=== PATIENT | female | born 1975 | race Caucasian/White ===

== ENCOUNTER 2016-11-22 05:41 | Day surgery (SDC) | payer OTHER ==
[~2016-11-22] VITALS: Ht 167.6 cm; Wt 56.2 kg
[2016-11-22 06:28] VITALS: Ht 167.6 cm; Wt 56.2 kg
[2016-11-22] MEDS ORDERED: OMEP40CA6 PO (06:36)
[2016-11-22 07:11] VITALS: BP 100/51; PULSE 73; RESP 20
[2016-11-22] MEDS ORDERED: MIDAZOLAM 1 MG/ML 2 ML INJ ONE ×2 (07:40)
[2016-11-22] MEDS ORDERED: FENTAnyl 50 MCG/ML VIAL ONE (07:41)
[2016-11-22 08:01] VITALS: BP 101/52; PULSE 84; RESP 12
--- NOTE | 2016-11-22 11:38 | GILP ---
DATE OF PROCEDURE: NAME OF PROCEDURES: Esophagogastroduodenoscopy and biopsy. SURGEON: Mio Henry MD PREOPERATIVE DIAGNOSIS: Gastroesophageal reflux disease. POSTOPERATIVE DIAGNOSES: 1. Gastroesophageal reflux disease. 2. Relaxed lower esophageal sphincter. 3. Gastritis with erosions. 4. Gastric mucosal biopsies were taken for Helicobacter pylori test. INDICATION FOR THE PROCEDURE: Ms. Yadira Lord is a 41-year-old female patient who had chronic heart burn, not responding to therapy. Patient also had noncardiac chest pain. The patient was scheduled for endoscopic examination for further evaluation. The procedure and possible complications are well explained to the patient. The patient understood and consented to the procedure. DESCRIPTION OF PROCEDURE: Under the influence of fentanyl and Versed, the gastroscope was carefully introduced into the esophagus and under direct vision, it was advanced to the stomach and through t he pylorus into the duodenal bulb and descending duodenum. FINDINGS: ESOPHAGUS: The patient had gastroesophageal reflux disease and relaxed lower esophageal sphincter. STOMACH: She had gastritis with erosions. Gastric mucosal biopsies were taken for H. pylori test. DUODENUM: Normal. She tolerated the procedure very well and there was no complication from the procedure. At the end of the procedures, she was awake with stable vital signs and she was discharged home to the care of her family. IMPRESSION: 1. Gastroesophageal reflux disease. 2. Relaxed lower esophageal sphincter. 3. Gastritis with erosions. 4. Gastric mucosal biopsies were taken for Helicobacter pylori test. PLAN: 1. Omeprazole 40 mg p.o. q.a.m. 2. Zantac 300 mg p.o. at bedtime. 3. Await H. pylori test report. Dictated By: MIO RAMOS/REFUGIO Conf#: [id number] DID#: [id number]
== END 2016-11-22 09:24 | disposition home or self-care (01) ==
LOC: GIL 05:41
PROVIDERS: ATTEND Internal Medicine Gastroenterology
DX: K21.9 Gastro-esophageal reflux disease without esophagitis (principal); B96.81 Helicobacter pylori [H. pylori] as the cause of diseases classified elsewhere; K29.60 Other gastritis without bleeding
CPT/HCPCS: 43239; 84703; 87081; J2250; J3010; Z7610